=== PATIENT | male | born 1950 | race Caucasian/White ===

== ENCOUNTER → 2016-09-22 | Outpatient (CLI) | payer BC ==
[~2016-09-22] MED LIST: ACET325T96 PO; ALBU1AER9 INH; ASCO500T3 PO; ASPI81TA28 PO; CHOL20009 PO; DIAZ2TAB PO; LOSA1TAB PO; MULT-506 PO; OMEG10007 PO; ZNTT/150 PO
--- NOTE | 2016-09-22 15:10 | DIAGNOSTIC IMAGING REPORT ---
RIGHT FOOT 3 VIEWS CLINICAL HISTORY: Right second toe pain. FINDINGS: 3 views of the right foot are obtained. No prior studies are available for comparison at the time of dictation. The skeletal structures are well mineralized. No fracture is seen. Mild arthritic changes present the first metatarsophalangeal joint. The joint spaces of the foot are otherwise preserved. Minimal degenerative spurring is seen along the dorsal aspect of the tarsal bones. A dorsal calcaneal enthesophyte is noted. The overlying soft tissues are within normal limits. IMPRESSION: 1. No acute bony abnormality is seen in the right foot. 2. Mild arthritic change is present at the first metatarsophalangeal joint. Electronically signed by: Dg Castro M.D. 09/22/2016 3:09 PM Dictated Date/Time: 09/22/2016 3:08 PM
== END | disposition home or self-care (01) ==
LOC: C.RAD1850 14:51
PROVIDERS: ATTEND Internal Medicine
DX: M79.676 Pain in unspecified toe(s) (principal)

== ENCOUNTER → 2016-12-02 | Outpatient (CLI) | payer BC ==
[2016-12-02 10:56] LABS: BASO % 0.3 %; BASO ABS # 0.02 K/uL (0-0.2); COMPLETE YES; EOS % 2.1 %; HEMATOCRIT 50.8 % (42-52); IG% 0.1 %; LYMPH % 35.3 %; LYMPH ABS # 2.41 K/uL (1.2-3.4); MEAN CELL VOLUME 93.6 fL (80-100); MEAN CORPUSCULAR HEMOGLOBIN 31.5 pg (25-34); MEAN CORPUSCULAR HGB CONC 33.7 g/dl (32-36); MEAN PLATELET VOLUME 10.3 fL (7.4-10.4); MONO % 10.6 %; NEUT % 51.6 %; PLATELET COUNT 173 K/uL (130-400); RED BLOOD COUNT 5.43 M/uL (4.7-6.1); WHITE BLOOD COUNT 6.82 K/uL (4.8-10.8)
[2016-12-02 11:13] LABS: ALT/SGPT 33 U/L (12-78); AST/SGOT 10 U/L (15-37); BLOOD UREA NITROGEN 14 mg/dl (7-18); BUN/CREATININE RATIO 15.7 (10-20); CALCIUM 8.6 mg/dl (8.5-10.1); CARBON DIOXIDE 28 mmol/L (21-32); CHLORIDE 107 mmol/L (98-107); CREATININE 0.91 mg/dl (0.60-1.40); GLUCOSE 104 mg/dl (70-99); POTASSIUM 4.2 mmol/L (3.5-5.1); SODIUM 142 mmol/L (136-145)
[2016-12-02 11:16] LABS: CHOLESTEROL 165 mg/dl (0-200); CHOLESTEROL/HDL RATIO 4.6; HDL CHOLESTEROL 36 mg/dl; LDL CHOLESTEROL CALCULATED 98 mg/dl; TRIGLYCERIDES 155 mg/dl (0-150); VERY LOW DENSITY LIPOPROT CALC 31 mg/dl
[2016-12-02 11:22] LABS: ESTIMATED AVERAGE GLUCOSE 114 mg/dl; HA1C FLAG Normal (Normal)
== END | disposition home or self-care (01) ==
LOC: C.LABBC 09:55
PROVIDERS: ATTEND Internal Medicine
DX: J44.9 Chronic obstructive pulmonary disease, unspecified (principal); E78.5 Hyperlipidemia, unspecified; I10 Essential (primary) hypertension; R73.03 Prediabetes

== ENCOUNTER → 2016-12-20 | Day surgery (SDC) | payer BC ==
[2016-12-11 11:03] VITALS: BMI 35.0
[~2016-12-20] VITALS: Ht 165.1 cm; Wt 97.7 kg
[~2016-12-20] MED LIST changes: +KETAMINE HCL INJ 50 MG/ML 10 ML VIAL ONE; +LIDOCAINE HCL 2% 2 ML VIAL (20MG/ML) ONE; +MIDAZOLAM HCL 1 MG/ML 2ML VIAL ONE; +PROPOFOL IV EMULSION 10 MG/ML 20 ML VIAL IV ONE; +SODIUM CHLORIDE 0.9% 500ML 500 ML IV ONE
[2016-12-20 12:44] VITALS: Ht 165.1 cm; Wt 97.7 kg
[2016-12-20 12:49] VITALS: TEMP 37.2
--- NOTE | 2016-12-20 13:09 | Endo History and Physical ---
History & Physical Date of Service: December 20, 2016. Chief Complaint: HX OF POLYPS Referring Physician: DR SHERIDAN History of Present Illness hx colon polyps Past Medical History Male Genitourinary Prob., Gastrointestinal Disorder, Anxiety, Reflux, Blood Dyscrasias Past Surgical History Hx Cardiac Surgery: No Hx Internal Defibrillator: No Hx Pacemaker: No Hx Abdominal Surgery: Yes (HERNIA REPAIR X3) Hx of Implantable Prosthesis: No Hx Post-Op Nausea and Vomiting: No Hx Cancer Surgery: No Hx Thoracic Surgery: No Hx Orthopedic: No Hx Urinary Tract Surgery: No Family History None Social History Smoking Status: Current Every Day Smoker Hx Substance Use: No Hx Alcohol Use: Yes (3 GLASSES WINE/WEEK) Allergies Coded Allergies: Amoxicillin (Verified Allergy, Unknown, ITCHING, 12/20/16) Clarithromycin (Verified Allergy, Unknown, VERY MILD REDDENED ARMS AND SLIGHT NAUSEA, 12/20/16) Clavulanic Acid (Verified Allergy, Unknown, ITCHING, 12/20/16) Current Medications Reported Home Medications Medications Dose Route/Sig Max Daily Dose Days Date Category Vitamin C (Ascorbic Acid) 500 Mg Tab 1 Tab PO QPM 12/11/16 Reported Vitamin D (Cholecalciferol) 2,000 Unit Tab 1 Tab PO QAM 12/11/16 Reported Cozaar (Losartan Potassium) 25 Mg Tab 25 Mg PO QAM 06/16/16 Reported Tylenol (Acetaminophen) 325 Mg Tab 325-650 Mg PO Q6 PRN 03/10/14 Reported Proair Hfa (Albuterol) Aers 1-2 Puffs INH Q4 PRN 03/10/14 Reported Multivitamin (Multivitamins) Tab 1 Tab PO QAM 03/10/14 Reported [place]-3 (Fish Oil) 1 Ea Cap 1,200 Mg PO QAM 03/10/14 Reported Aspirin Ec (Aspirin) 81 Mg Tab 81 Mg PO HS 03/10/14 Reported Valium (Diazepam) 2 Mg Tab 1-2 Mg PO HS PRN 03/17/08 Reported Zantac (Ranitidine HCl) 150 Mg Tab 150 Mg PO BID 03/17/08 Reported Vital Signs Weight (Kilograms): 97.73 Height (Feet): 5 Height (Inches): 5 Date Time Temp Pulse Resp B/P Pulse Ox O2 Delivery O2 Flow Rate FiO2 12/20/16 12:49 37.2 81 20 122/82 98 Room Air Physical Exam AAox3 Nls1s2 Lungs CTA - CCE Assessment and Plan ciolonoscopy
--- NOTE | 2016-12-20 13:42 | Discharge Instructions ---
Endoscopy Patient Instructions Date / Procedure(s) Performed December 20, 2016. Colonoscopy Allergy Information Coded Allergies: Amoxicillin (Verified Allergy, Unknown, ITCHING, 12/20/16) Clarithromycin (Verified Allergy, Unknown, VERY MILD REDDENED ARMS AND SLIGHT NAUSEA, 12/20/16) Clavulanic Acid (Verified Allergy, Unknown, ITCHING, 12/20/16) Discharge Date / Findings December 20, 2016. polyps-removed Medication Instructions Stopped Medication(s): ASA AND MVI Restart Stopped Medication(s): Reported Home Medications Medications Dose Route/Sig Max Daily Dose Days Date Category Vitamin C (Ascorbic Acid) 500 Mg Tab 1 Tab PO QPM 12/11/16 Reported Vitamin D (Cholecalciferol) 2,000 Unit Tab 1 Tab PO QAM 12/11/16 Reported Cozaar (Losartan Potassium) 25 Mg Tab 25 Mg PO QAM 06/16/16 Reported Tylenol (Acetaminophen) 325 Mg Tab 325-650 Mg PO Q6 PRN 03/10/14 Reported Proair Hfa (Albuterol) Aers 1-2 Puffs INH Q4 PRN 03/10/14 Reported Multivitamin (Multivitamins) Tab 1 Tab PO QAM 03/10/14 Reported [place]-3 (Fish Oil) 1 Ea Cap 1,200 Mg PO QAM 03/10/14 Reported Aspirin Ec (Aspirin) 81 Mg Tab 81 Mg PO HS 03/10/14 Reported Valium (Diazepam) 2 Mg Tab 1-2 Mg PO HS PRN 03/17/08 Reported Zantac (Ranitidine HCl) 150 Mg Tab 150 Mg PO BID 03/17/08 Reported Reported Home Medications Medications Dose Route/Sig Max Daily Dose Days Date Category Vitamin C (Ascorbic Acid) 500 Mg Tab 1 Tab PO QPM 12/11/16 Reported Vitamin D (Cholecalciferol) 2,000 Unit Tab 1 Tab PO QAM 12/11/16 Reported Cozaar (Losartan Potassium) 25 Mg Tab 25 Mg PO QAM 06/16/16 Reported Tylenol (Acetaminophen) 325 Mg Tab 325-650 Mg PO Q6 PRN 03/10/14 Reported Proair Hfa (Albuterol) Aers 1-2 Puffs INH Q4 PRN 03/10/14 Reported Multivitamin (Multivitamins) Tab 1 Tab PO QAM 03/10/14 Reported [place]-3 (Fish Oil) 1 Ea Cap 1,200 Mg PO QAM 03/10/14 Reported Aspirin Ec (Aspirin) 81 Mg Tab 81 Mg PO HS 03/10/14 Reported Valium (Diazepam) 2 Mg Tab 1-2 Mg PO HS PRN 03/17/08 Reported Zantac (Ranitidine HCl) 150 Mg Tab 150 Mg PO BID 03/17/08 Reported Provider Instructions Activity Restrictions - No exercising or heavy lifting for 24 hours. - Do not drink alcohol the day of the procedure. - Do not drive a car or operate machinery until the day after the procedure. - Do not make any important decisions or sign important papers in 24 hours after the procedure. Following Day: - Return to full activity which may include returning to work/school. Diet Start your diet with liquids and light foods (jello, soup, juice, toast). Then eat your usual diet if not nauseated. Treatment For Common After Affects For mild abdominal pain, bloating, or excessive gas: - Rest - Eat lightly - Lie on right side Follow-Up Information Follow-up with DR SHERIDAN as scheduled Anesthesia Information What You Should Know You have had a procedure that required some medicine to reduce anxiety and discomfort. This treatment is called moderate sedation. After receiving the treatment, you may be sleepy, but you will be able to breathe on your own. The effects of the treatment may last for several hours. Follow these instructions along with Activity/Diet recommendations noted above: * Do NOT do anything where dizziness or clumsiness would be dangerous. * Rest quietly at home today, then you can be up and about tomorrow. * Have a responsible person stay with you the rest of today. * You may have had an I.V. today. If so, you may take the dressing off later today. Recommendations Call your doctor if: * Trouble breathing * Continuous vomiting for more than 24 hours * Temperature above 101 degrees * Severe abdominal pain or bloating * Pain not relieved by pain medicine ordered * There is increased drainage or redness from any incision * A large amount of rectal bleeding greater than 2-3 tablespoons. (If you had a polyp/s removed or have hemorrhoids, a small amount of blood - from the rectum is to be expected.) * You have any unanswered questions or concerns. IN THE EVENT OF A SERIOUS EMERGENCY, GO TO THE NEAREST EMERGENCY ROOM Your discharge instructions were prepared by provider Sagar Vigil. Patient Instructions Signature Page Jefe Ramsey Patient (or Guardian) Signature/Date: I have read and understand the instructions given to me by my caregivers. Caregiver/RN/Doctor Signature/Date: The above-named patient and/or guardian has received patient instructions on this date. + Original Patient Signature Page (only) stays with chart. Please make copy for patient.
--- NOTE | 2016-12-20 13:50 | GI REPORT ---
Procedure Date: 12/20/2016 1:03 PM Procedure: Colonoscopy Indications: High risk colon cancer surveillance: Personal history of colonic polyps Medicines: Propofol per Anesthesia Complications: No immediate complications. Estimated blood loss: Minimal. Estimated Blood Loss: Estimated blood loss was minimal. Procedure: Pre-Anesthesia Assessment: - Prior to the procedure, a History and Physical was performed, and patient medications and allergies were reviewed. The patient's tolerance of previous anesthesia was also reviewed. The risks and benefits of the procedure and the sedation options and risks were discussed with the patient. All questions were answered, and informed consent was obtained. Prior Anticoagulants: The patient has taken no previous anticoagulant or antiplatelet agents. ASA Grade Assessment: III - A patient with severe systemic disease. After reviewing the risks and benefits, the patient was deemed in satisfactory condition to undergo the procedure. After I obtained informed consent, the scope was passed under direct vision. Throughout the procedure, the patient's blood pressure, pulse, and oxygen saturations were monitored continuously. The scope was introduced through the anus and advanced to the terminal ileum, with identification of the appendiceal orifice and IC valve. The colonoscopy was performed without difficulty. The patient tolerated the procedure well. The quality of the bowel preparation was good. Findings: The perianal and digital rectal examinations were normal. Pertinent negatives include normal sphincter tone, no palpable rectal lesions and no anal lesion or abnormality was detected. Two sessile polyps were found in the sigmoid colon. The polyps were 5 to 8 mm in size. These polyps were removed with a hot snare. Resection and retrieval were complete. Estimated blood loss was minimal. Verification of patient identification for the specimen was done by the physician and outdoor emergency care technician using the patient's name and medical record number. A 4 mm polyp was found in the cecum. The polyp was sessile. The polyp was removed with a cold snare. Resection and retrieval were complete. Estimated blood loss was minimal. Verification of patient identification for the specimen was done by the physician and outdoor emergency care technician using the patient's name and medical record number. One 20 mm submucosal nodule was found at the appendiceal orifice. Biopsies were taken with a cold forceps for histology. Estimated blood loss was minimal. Verification of patient identification for the specimen was done by the physician and outdoor emergency care technician using the patient's name and medical record number. Two sessile polyps were found at 30 cm proximal to the anus. The polyps were 3 to 5 mm in size. These polyps were removed with a cold snare. Resection and retrieval were complete. Estimated blood loss was minimal. Verification of patient identification for the specimen was done by the physician and nurse using the patient's name and medical record number. Many small-mouthed diverticula were found in the sigmoid colon. The retroflexed view of the distal rectum and anal verge was normal and showed no anal or rectal abnormalities. Impression: - Two 5 to 8 mm polyps in the sigmoid colon, removed with a hot snare. Resected and retrieved. - One 4 mm polyp in the cecum, removed with a cold snare. Resected and retrieved. - Submucosal nodule at the appendiceal orifice. Biopsied. - Two 3 to 5 mm polyps at 30 cm proximal to the anus, removed with a cold snare. Resected and retrieved. - Diverticulosis in the sigmoid colon. - The distal rectum and anal verge are normal on retroflexion view. Recommendation: - Discharge patient to home (ambulatory). - Patient has a contact number available for emergencies. The signs and symptoms of potential delayed complications were discussed with the patient. Return to normal activities tomorrow. Written discharge instructions were provided to the patient. - Resume regular diet. - Await pathology results. - Repeat colonoscopy for surveillance based on pathology results. - Return to referring physician as previously scheduled. MD Sagar Cabrera MD 12/20/2016 1:50:01 PM This report has been signed electronically. Note Initiated On: 12/20/2016 1:03 PM I attest to the content of the Intraoperative Record and orders documented therein, exceptions below
--- NOTE | 2016-12-20 14:06 | Anesthesiology Progress Note ---
Anesthesia Post Op Note Date & Time December 20, 2016 at 14:06 Vital Signs Pain Intensity: 0 Vital Signs Past 12 Hours Date Time Temp Pulse Resp B/P Pulse Ox O2 Delivery O2 Flow Rate FiO2 12/20/16 13:49 76 20 96/56 94 Room Air 12/20/16 12:49 37.2 81 20 122/82 98 Room Air Notes Mental Status: alert / awake / arousable, participated in evaluation Pt Amnestic to Procedure: Yes Nausea / Vomiting: adequately controlled Pain: adequately controlled Airway Patency, RR, SpO2: stable & adequate BP & HR: stable & adequate Hydration State: stable & adequate Anesthetic Complications: no major complications apparent
[2016-12-20 14:19] VITALS: BP 104/60; PULSE 73; O2SAT 94
== END | disposition home or self-care (01) ==
LOC: C.GI 12:19
PROVIDERS: ATTEND Internal Medicine Gastroenterology
DX: Z12.11 Encounter for screening for malignant neoplasm of colon (principal); Z86.010 Personal history of colon polyps; D12.5 Benign neoplasm of sigmoid colon; D12.0 Benign neoplasm of cecum; K63.5 Polyp of colon; K57.30 Diverticulosis of large intestine without perforation or abscess without bleeding; F41.9 Anxiety disorder, unspecified; K21.9 Gastro-esophageal reflux disease without esophagitis; D75.9 Disease of blood and blood-forming organs, unspecified; F17.210 Nicotine dependence, cigarettes, uncomplicated; Z79.82 Long term (current) use of aspirin; Z79.899 Other long term (current) drug therapy

== ENCOUNTER → 2017-06-19 | Outpatient (CLI) | payer BC ==
[~2017-06-19] MED LIST changes: -KETAMINE HCL INJ 50 MG/ML 10 ML VIAL ONE; -LIDOCAINE HCL 2% 2 ML VIAL (20MG/ML) ONE; -MIDAZOLAM HCL 1 MG/ML 2ML VIAL ONE; -PROPOFOL IV EMULSION 10 MG/ML 20 ML VIAL IV ONE; -SODIUM CHLORIDE 0.9% 500ML 500 ML IV ONE
--- NOTE | 2017-06-19 12:35 | DIAGNOSTIC IMAGING REPORT ---
CT LUNG SCREENING, LOW DOSE WITH COMPUTER-AIDED DETECTION (CAD) CLINICAL HISTORY: Lung cancer screening. Smoking history. COMPARISON STUDY: Lung cancer screening chest CT 06/15/2016 CT DOSE: 79.39 mGycm TECHNIQUE: Low-dose helical CT was acquired without intravenous contrast from lung apices to bases and reconstructed at 2.5 mm every 2 mm. CAD was utilized for this study. A dose lowering technique was utilized adhering to the principles of ALARA. FINDINGS: Mild emphysema. Stable 3 mm groundglass nodule within the left upper lobe on image 55 of 163. Bibasilar linear densities consistent with subsegmental atelectasis or scarring. No new pulmonary nodules identified. The central airways are patent. No pleural effusions. No pneumothorax. No mediastinal or hilar lymphadenopathy. Stable aneurysmal dilatation of the ascending thoracic aorta which measures up to 4.6 cm in diameter. Mild to moderate coronary artery calcifications. Visualized liver and spleen are unremarkable. Normal adrenal glands. Nodule 1 Category: 2 Nodule 1 Status: New Nodule 1 Description: Solid Nodule 1 Lesion ID: 2 Nodule 1 Slice Number: [id number] Nodule 1 Volume (mm3): 16 Nodule 1 Major [place] mm: 3.3 Nodule 1 Minor [place] mm: 2.6 IMPRESSION: 1. No change from the prior study. Stable 3 mm nodule within the left upper lobe. 2. Stable aneurysmal dilatation of the ascending thoracic aorta measuring 4.6 cm. CAD FINDINGS: Overall Lung RADS Category: 2 Lung RADS Management Recommendation: Continue annual lung cancer screening. Lung RADS Follow Up Date: 2018-06-19 Lung RADS Nodule ID: 2 Electronically signed by: Rudy Baldwin M.D. 06/19/2017 12:34 PM Dictated Date/Time: 06/19/2017 12:25 PM
== END | disposition home or self-care (01) ==
LOC: C.CTS 12:02
PROVIDERS: ATTEND Internal Medicine
DX: Z00.00 Encounter for general adult medical examination without abnormal findings (principal); Z12.2 Encounter for screening for malignant neoplasm of respiratory organs; F17.200 Nicotine dependence, unspecified, uncomplicated; J43.9 Emphysema, unspecified; R91.1 Solitary pulmonary nodule; R91.8 Other nonspecific abnormal finding of lung field; I77.810 Thoracic aortic ectasia

== ENCOUNTER → 2017-07-24 | Outpatient (CLI) | payer BC ==
[~2017-07-24] MED LIST changes: +OPTIRAY 320 IV PRN
--- NOTE | 2017-07-24 16:52 | DIAGNOSTIC IMAGING REPORT ---
HEAD COMBO HISTORY: 67 years-old Male NUMBNESS OF UPPER EXTREMITY, THORACIC AORTIC AN. Acute left-sided facial numbness and tingling COMPARISON: None available. TECHNIQUE: Multiple axial CT images of the head were obtained both with and without the use of 93 mL Optiray 320 intravenous contrast. A dose lowering technique was used consistent with the principals of DAYO. FINDINGS: No acute intracranial hemorrhage, midline shift, abnormal extra-axial collections, hydrocephalus, intracranial mass or territorial ischemia. Mild atherosclerotic plaquing is seen at the level the skull base involving the intracranial vessels. There is no abnormal intra-axial or extra-axial enhancement identified. The cerebral venous sinuses appear patent. The opacified intracranial arteries appear unremarkable. Mastoid air cells and middle ear cavities are clear. Imaged paranasal sinuses also appear generally clear. Soft tissues are unremarkable. Nonspecific cutaneous 8 mm soft tissue nodule involves the right parietal scalp, image 25 series 5. IMPRESSION: 1. No acute intracranial abnormality. 2. No abnormal enhancement. 3. Nonspecific cutaneous 8 mm soft tissue nodule of the right parietal scalp. Correlate with clinical exam. The above report was generated using voice recognition software. It may contain grammatical, syntax or spelling errors. Electronically signed by: Mitchell Molina M.D. 07/24/2017 4:51 PM Dictated Date/Time: 07/24/2017 4:45 PM
== END | disposition home or self-care (01) ==
LOC: C.CTS 15:52
PROVIDERS: ATTEND Physician Assistant
DX: R22.0 Localized swelling, mass and lump, head (principal); I77.810 Thoracic aortic ectasia; R20.0 Anesthesia of skin

== ENCOUNTER → 2017-10-03 | Outpatient (CLI) | payer OTHER ==
[~2017-10-03] MED LIST changes: +ACET-1693 PO; -ACET325T96 PO; -OPTIRAY 320 IV PRN; +RANI150T85 PO; -ZNTT/150 PO
== END | disposition home or self-care (01) ==
LOC: C.LAB1850 12:24
PROVIDERS: ATTEND Physician Assistant
DX: R68.89 Other general symptoms and signs (principal)

== ENCOUNTER → 2017-10-26 | Outpatient (CLI) | payer OTHER ==
--- NOTE | 2017-10-26 16:15 | DIAGNOSTIC IMAGING REPORT ---
BRAIN COMBO CLINICAL HISTORY: I65.29 Carotid artery stenosis, [id number] Arterial ischem mental status change. Ischemia. COMPARISON STUDY: CT 07/24/2017 TECHNIQUE: Utilizing a 1.5 Valentina magnet and dedicated coil, multiplanar, multiecho imaging of the brain was performed pre and postcontrast administration. IV administration of 8.5 mL of Gadavist contrast was uneventful. FINDINGS: Diffusion-weighted images demonstrate an acute/subacute ischemic process involving the right temporal lobe and to a lesser extent inferior right frontal lobe. No additional foci of ischemic change are present. Additional sequences demonstrate an increase in signal is similar somewhat gyral pattern on the pre as well as postcontrast enhanced scans. There does not appear to be a significant component of postcontrast enhancement. There is increase in signal indicate a subacute to chronic small hemorrhagic component in addition to the ischemic component. No additional foci of signal abnormalities appreciated. There are findings of mild age-related atrophy and chronic small vessel change. Ventricular system is midline. The internal artery canals are symmetric. IMPRESSION: 1. 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 2. Appears to be a small associated chronic hemorrhagic component, with this process felt to be subacute to chronic. 3. The increase in diffusion signal potentially indicates mild acute/subacute extension of a pre-existing infarct. 4. The remainder the study shows mild age-related atrophy and chronic small vessel change. The above report was generated using voice recognition software. It may contain grammatical, syntax or spelling errors. Electronically signed by: Zackery Cosme M.D. 10/26/2017 4:14 PM Dictated Date/Time: 10/26/2017 4:06 PM
--- NOTE | 2017-10-26 16:22 | DIAGNOSTIC IMAGING REPORT ---
MRA NECK COMBO CLINICAL HISTORY: 67 years-old Male presenting with carotid artery stenosis, history of TIA. TECHNIQUE: MR angiography of the neck was performed before and after the administration of intravenous contrast. 3-D volumetric and/or maximum intensity projection (MIP) images were subsequently reconstructed for review. IV contrast: 9.5 mL of Gadavist. Stenosis measurements were based on NASCET-like criteria. COMPARISON: None. FINDINGS: Contrast imaging demonstrates attenuation of the right common carotid artery and complete occlusion of the right internal carotid artery. Grossly patent left common and internal carotid arteries allowing for motion artifact. Codominant vertebral arteries grossly patent. Postcontrast imaging demonstrates potential common origin of the innominate and left common carotid arteries. Origins of the major branch vessels of the aortic arch patent. The right common carotid artery is slightly more narrow in caliber relative to the left. The right internal carotid artery is completely occluded at the origin. The left common and internal carotid arteries are widely patent. The intracranial portion of the right ICA is also occluded. There is reconstitution of the right ICA terminus. The right anterior and middle cerebral arteries are grossly patent. Codominant vertebral arteries. Right vertebral artery patent at its origin and along its course. The left vertebral artery is either severely stenotic or occluded at its origin though it remains patent along the remainder of its course. 2 cm beyond its origin and distally. This is more suggestive of severe stenosis rather than occlusion given distal patency. IMPRESSION: 1. Suspected severe stenosis of the origin and proximal 2 cm of the left vertebral artery. Normal widely patent appearance of the remainder of the left vertebral artery. 2. Complete occlusion of the right internal carotid artery from its origin until its reconstitution near the intracranial right ICA terminus. This is likely chronic. 3. Attenuation of the right common carotid artery likely due to chronic right ICA occlusion. Electronically signed by: Raheel Bauer M.D. 10/26/2017 4:21 PM Dictated Date/Time: 10/26/2017 4:14 PM
== END | disposition home or self-care (01) ==
LOC: C.MRI 14:32
PROVIDERS: ATTEND Psychiatry & Neurology Neurology
DX: I63.9 Cerebral infarction, unspecified (principal); I65.21 Occlusion and stenosis of right carotid artery

== ENCOUNTER → 2017-10-31 | Outpatient (CLI) | payer OTHER ==
[~2017-10-31] MED LIST changes: +OPTIRAY 320 IV PRN
--- NOTE | 2017-10-31 17:56 | DIAGNOSTIC IMAGING REPORT ---
NECK ANGIO WITH CONTRAST HISTORY: Mental status change stenosis TECHNIQUE: Multiaxial CT images of the neck were performed following the intravenous administration of contrast to evaluate the major cervical vessels. Maximum intensity projection images were also obtained. All measurements were calculated based on NASCET criteria. A dose lowering technique was utilized adhering to the principles of ALARA. COMPARISON STUDY: MRA neck 10/26/2017 FINDINGS: The aortic arch and proximal great vessels are widely patent. There is a high-grade stenosis origin left vertebral artery. The remainder of the vertebral basilar complex is unremarkable. The left common internal and external carotid arteries are unremarkable. There is no significant stenotic process. There is complete/near-complete occlusion of the right internal carotid artery at its origin. There is suggestion of a potential trace amount of flow through the stenotic process to an extremely small caliber and/or low flow state of the distal right internal carotid artery. Trace amount of flow is identified through the right cavernous sinus IMPRESSION: 1. High-grade stenosis origin left vertebral artery. 2. The vertebral basilar system is otherwise unremarkable. 3. Critical stenosis right internal carotid artery at its origin with a trickle of flow extending distal to the stenosis with a minimal/low flow state within the right distal internal carotid artery. The above report was generated using voice recognition software. It may contain grammatical, syntax or spelling errors. Electronically signed by: Zackery Cosme M.D. 10/31/2017 5:54 PM Dictated Date/Time: 10/31/2017 5:44 PM
== END | disposition home or self-care (01) ==
LOC: C.CTS 16:15
PROVIDERS: ATTEND Psychiatry & Neurology Neurology
DX: I65.29 Occlusion and stenosis of unspecified carotid artery (principal)

== ENCOUNTER → 2017-11-29 | Outpatient (CLI) | payer OTHER ==
[~2017-11-29] MED LIST changes: -OPTIRAY 320 IV PRN
[2017-11-29 10:20] LABS: BASO % 0.4 %; BASO ABS # 0.03 K/uL (0-0.2); EOS % 1.9 %; EOS ABS # 0.15 K/uL (0-0.5); HEMOGLOBIN 17.8 g/dL (14.0-18.0); IG# 0.01 K/uL (0.00-0.02); LYMPH % 35.2 %; LYMPH ABS # 2.82 K/uL (1.2-3.4); MEAN CELL VOLUME 93.1 fL (80-100); MEAN CORPUSCULAR HEMOGLOBIN 32.5 pg (25-34); MEAN CORPUSCULAR HGB CONC 34.9 g/dl (32-36); MEAN PLATELET VOLUME 10.2 fL (7.4-10.4); MONO % 10.9 %; MONO ABS # 0.87 K/uL (0.11-0.59); NEUT % 51.5 %; NEUT ABS # 4.13 K/uL (1.4-6.5); PLATELET COUNT 169 K/uL (130-400); RED CELL DISTRIBUTION WIDTH CV 13.4 % (11.5-14.5); RED CELL DISTRIBUTION WIDTH SD 45.8 fL (36.4-46.3); WHITE BLOOD COUNT 8.01 K/uL (4.8-10.8)
[2017-11-29 10:26] LABS: HEMOGLOBIN A1C 5.8 % (4.5-5.6)
[2017-11-29 10:52] LABS: ALT/SGPT 36 U/L (12-78); AST/SGOT 14 U/L (15-37); BLOOD UREA NITROGEN 16 mg/dl (7-18); CALCIUM 9.1 mg/dl (8.5-10.1); CARBON DIOXIDE 29 mmol/L (21-32); CREATININE 0.94 mg/dl (0.60-1.40); GLUCOSE 105 mg/dl (70-99); SODIUM 138 mmol/L (136-145)
[2017-11-29 10:56] LABS: CHOLESTEROL 86 mg/dl (0-200); LDL CHOLESTEROL CALCULATED 27 mg/dl
== END | disposition home or self-care (01) ==
LOC: C.LAB1850 09:25
PROVIDERS: ATTEND Internal Medicine
DX: E78.5 Hyperlipidemia, unspecified (principal); E88.81 Metabolic syndrome and other insulin resistance; D75.1 Secondary polycythemia

== ENCOUNTER → 2018-03-28 | Outpatient (CLI) | payer OTHER ==
[2018-03-28 10:38] LABS: HEMOGLOBIN A1C 5.7 % (4.5-5.6)
[2018-03-28 11:08] LABS: ALT/SGPT 33 U/L (12-78); AST/SGOT 18 U/L (15-37); BLOOD UREA NITROGEN 13 mg/dl (7-18); CALCIUM 8.8 mg/dl (8.5-10.1); CARBON DIOXIDE 27 mmol/L (21-32); CHOLESTEROL 75 mg/dl (0-200); CREATININE 0.91 mg/dl (0.60-1.40); GLUCOSE 90 mg/dl (70-99); LDL CHOLESTEROL CALCULATED 14 mg/dl; SODIUM 140 mmol/L (136-145)
== END | disposition home or self-care (01) ==
LOC: C.LAB1850 09:04
PROVIDERS: ATTEND Internal Medicine
DX: R73.03 Prediabetes (principal); I65.29 Occlusion and stenosis of unspecified carotid artery; E78.5 Hyperlipidemia, unspecified